=== PATIENT | female | born 1945 | race American Indian/Alaskan Native ===

== ENCOUNTER 2017-11-17 10:43 | Inpatient (IN) | payer MEDICARE ==
[2017-11-17] MEDS ORDERED: CATAPRES PO ONE (11:49)
--- NOTE | 2017-11-17 12:50 | XRay Report ---
LEFT WRIST, 3 views: HISTORY: Pain and swelling at wrist. Mild osteopenia is evident. Mild osteoarthritic changes. No displaced fracture or or malalignment is identified. Chronic calcifications overlying the triangular fibrocartilage complex is noted. There is mild diffuse soft tissue swelling. IMPRESSION: Chronic findings as described.
[2017-11-17 12:59] LABS: Hematocrit 40.3 % (30.3-42.9); Hemoglobin 13.4 gm/dl (10.1-14.3); Mean Corpuscular HGB Conc 33 % (30-34); Mean Corpuscular Hemoglobin 27 pg (28-32); Mean Corpuscular Volume 80 fl (79-97); Platelet Count 209 K/mm3 (140-440); Red Blood Count 5.06 M/mm3 (3.65-5.03); Red Cell Distribution Width 15.3 % (13.2-15.2)
[2017-11-17 13:11] LABS: INR 0.91 (0.87-1.13)
[2017-11-17 13:12] LABS: Partial Thromboplastin Time 26.8 Sec. (24.2-36.6)
[2017-11-17 13:14] LABS: BUN/Creatinine Ratio 21; Blood Urea Nitrogen 15 mg/dL (7-17); Calcium 10.1 mg/dL (8.4-10.2); Hemolysis Index 12
[2017-11-17] MEDS ORDERED: NORCO 5/325 PO ONE (14:48)
--- NOTE | 2017-11-17 14:51 | Emergency Department Report ---
Chief Complaint: Extremity Injury, Upper Stated Complaint: LEFT SHOULDER PAIN - HPI History of Present Illness: 72-year-old female with history of hypertension, lupus, asthma presents to the emergency department with complaint of severe left arm pain from the wrist to the shoulder. She says that she will occasionally have twinges of pain in the chest and some intermittent shortness of breath. No recent travel or sick contacts at home. She has not taken anything for her symptoms prior to presentation. - ROS Review of Systems: Positive for left arm pain and swelling, intermittent chest pains, intermittent shortness of breath Negative for fever, nausea, vomiting or diaphoresis - Exam Vital Signs: Vital Signs 11/17/17 11/17/17 11/17/17 11:33 11:53 13:10 Temperature 99 F Pulse Rate 87 87 71 Respiratory 18 18 Rate Blood Pressure 230/133 230/133 120/70 O2 Sat by Pulse 99 98 Oximetry Physical Exam: Patient appears uncomfortable and is moaning in pain holding her left arm. She is very tender to palpation along the left wrist and the left upper arm. Radial pulse +2 over 4 and Refill less than 2 seconds to the affected left arm. Heart and lungs are normal to auscultation. MSE screening note: Focused history and physical exam performed. Due to findings the following was ordered: So far the patient's labs are unremarkable except for a very elevated d-dimer greater than 1000. Since she has complaints of left arm pain and swelling, she will have a venous Doppler ultrasound done. She has been given something for discomfort. With concern that the left arm pain could be some atypical ACS event, the patient will have an EKG, a 2 view chest x-ray and a troponin has been ordered. It is my recommendation that the patient is seen on the main emergency Department side ED Medical Decision Making - Lab Data Result diagrams: 11/17/17 12:40 11/17/17 12:43 ED Disposition for MSE Condition: Stable Referrals: PRIMARY CARE, [Primary Care Provider] - 3-5 Days
--- NOTE | 2017-11-17 17:02 | Emergency Department Report ---
HPI - General Chief Complaint: Extremity Injury, Upper Time Seen by Provider: 11/17/17 15:00 - HPI HPI: Room 36 The patient is a 72-year-old female presenting with chief complaint of left upper extremity and chest pain. The patient states her left shoulder/left upper extremity and chest wall hurting today upon awakening. The patient states her chest pain is an intermittent shooting pain associated with some shortness of breath and diaphoresis. The patient states she occasionally gets nauseous but has not vomited. Patient complains of significant pain in the left shoulder and remainder of the left upper extremity. Patient denies any history of trauma. The patient gives her pain a score of 10/10. The patient states this happened to her right arm in the past requiring admission to the hospital for 4 months and she states it was attributed to her lupus. 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 - Surgical History Additional Surgical History: hysterectomy - Family History Family history: no significant - Social History Smoking Status: Never Smoker Substance Use Type: None - Medications Home Medications: Home Medications Medication Instructions Recorded Confirmed Last Taken Type Aspirin [Lo-Dose Aspirin EC] 81 mg PO DAILY 11/17/17 11/17/17 Unknown History Valsartan [Diovan] 160 mg PO QDAY 11/17/17 11/17/17 Unknown History amLODIPine [Norvasc] 5 mg PO DAILY 11/17/17 11/17/17 Unknown History ED Review of Systems ROS: Stated complaint: LEFT SHOULDER PAIN Other details as noted in HPI Constitutional: diaphoresis Respiratory: shortness of breath Cardiovascular: chest pain Gastrointestinal: nausea. denies: vomiting Musculoskeletal: arthralgia, myalgia Physical Exam - Physical Exam Vital Signs: Vital Signs 11/17/17 11/17/17 11/17/17 11:33 11:53 13:10 Temperature 99 F Pulse Rate 87 87 71 Respiratory 18 18 Rate Blood Pressure 230/133 230/133 120/70 Blood Pressure [Left] O2 Sat by Pulse 99 98 Oximetry 11/17/17 15:01 Temperature 98.4 F Pulse Rate 18 L Respiratory 18 Rate Blood Pressure Blood Pressure 147/86 [Left] O2 Sat by Pulse 94 Oximetry Physical Exam: GENERAL: The patient is well-developed well-nourished elderly female sitting in wheelchair tearful holding left upper extremity. [] HEENT: Normocephalic. Atraumatic. Extraocular motions are intact. Patient has moist mucous membranes. NECK: Supple. Trachea midline CHEST/LUNGS: Clear to auscultation. There is no respiratory distress noted. 2 + left radial pulse HEART/CARDIOVASCULAR: Regular. There is no tachycardia. There is no gallop rub or murmur. ABDOMEN: Abdomen is soft, nontender. Patient has normal bowel sounds. There is no abdominal distention. SKIN: There is no rash. There is no edema. There is no diaphoresis. NEURO: The patient is awake, alert, and oriented. The patient is cooperative. The patient has normal speech MUSCULOSKELETAL: The left upper extremity is exquisitely tender to touch especially at the wrist. Patient will not perform range of motion secondary to pain. There is no tenderness to palpation of the posterior aspect of the left shoulder ED Course Vital Signs 11/17/17 11/17/17 11/17/17 11:33 11:53 13:10 Temperature 99 F Pulse Rate 87 87 71 Respiratory 18 18 Rate Blood Pressure 230/133 230/133 120/70 Blood Pressure [Left] O2 Sat by Pulse 99 98 Oximetry 11/17/17 15:01 Temperature 98.4 F Pulse Rate 18 L Respiratory 18 Rate Blood Pressure Blood Pressure 147/86 [Left] O2 Sat by Pulse 94 Oximetry ED Medical Decision Making - Lab Data Result diagrams: 11/17/17 12:40 11/17/17 12:43 Laboratory Tests 11/17/17 11/17/17 11/17/17 12:40 12:43 12:43 WBC 7.7 RBC 5.06 H Hgb 13.4 Hct 40.3 MCV 80 MCH 27 L MCHC 33 RDW 15.3 H Plt Count 209 PT 12.7 INR 0.91 APTT 26.8 D-Dimer 1047.28 H Sodium 137 Potassium 4.0 Chloride 98.4 Carbon Dioxide 23 Anion Gap 20 BUN 15 Creatinine 0.7 Estimated GFR > 60 BUN/Creatinine Ratio 21 Glucose 239 H Calcium 10.1 Troponin T 11/17/17 14:57 WBC RBC Hgb Hct MCV MCH MCHC RDW Plt Count PT INR APTT D-Dimer Sodium Potassium Chloride Carbon Dioxide Anion Gap BUN Creatinine Estimated GFR BUN/Creatinine Ratio Glucose Calcium Troponin T < 0.010 - EKG Data -: EKG Interpreted by Me EKG shows normal: sinus rhythm Rate: normal - EKG Data When compared to previous EKG there are: previous EKG unavailable Interpretation: other (left bundle branch block) - Radiology Data Radiology results: report reviewed (chest x-ray, left wrist x-ray, CT chest), image reviewed (chest x-ray, left wrist x-ray, CT chest) interpreted by me: Chest x-ray-no focal infiltrates, no pneumothorax Left wrist x-ray-no acute fracture CT chest (regular radiologist)-no evidence of large vessel or central pulmonary emboli. No acute consolidation - Differential Diagnosis ACS, pericarditis, GERD, rotator cuff injury, bursitis, rheumatoid arthriti Critical care attestation.: If time is entered above; I have spent that time in minutes in the direct care of this critically ill patient, excluding procedure time. ED Disposition Clinical Impression: Chest pain, Polyarthralgia Disposition: OP ADMIT IP TO THIS HOSP Is pt being admited?: Yes Does the pt Need Aspirin: Yes Condition: Fair Instructions: Chest Pain (ED) Referrals: PRIMARY CARE, [Primary Care Provider] - 3-5 Days Time of Disposition: 19:13 (Hospitalist notified (Dr Sears))
--- NOTE | 2017-11-17 17:14 | XRay Report ---
FINAL REPORT EXAM: XR CHEST 1V AP HISTORY: CP TECHNIQUE: Single, portable chest x-ray. PRIORS: None. FINDINGS: Cardiac and mediastinal silhouette within normal limits. Lungs are normally expanded, without significant vascular congestion. No focal consolidation or apparent pneumothorax. Considerable degenerative changes in the bilateral AC joints. Remainder of bony thorax grossly unremarkable. IMPRESSION: 1. No acute findings.
[2017-11-17] MEDS ORDERED: NORCO 5/325 ONE (17:30)
--- NOTE | 2017-11-17 18:15 | Vascular Lab Report ---
LEFT UPPER EXTREMITY VENOUS DUPLEX: REASON FOR EXAM: Pain and swelling of the left upper extremity COMMENTS ON THE LEFT: All arm veins visualized are freely compressible without evidence of internal echogenicity. The subclavian and internal jugular veins are free of thrombus. Flow is spontaneous and phasic throughout. COMMENTS ON THE RIGHT: A limited study of the jugular and subclavian veins shows no evidence of thrombus. IMPRESSION: No evidence of acute or chronic deep venous thrombosis in the left upper extremity.
[2017-11-17] MEDS ORDERED: NORMODYNE IV ONE (19:11)
[2017-11-17] MEDS ORDERED: ASPIRIN PO ONE (19:16)
[2017-11-17] MEDS ORDERED: ZOFRAN ONE (20:51)
[2017-11-17] MEDS ORDERED: MORPHINE ONE (20:51)
[2017-11-17] MEDS ORDERED: ZOFRAN IV ONE (20:52)
[2017-11-17] MEDS ORDERED: MORPHINE IV ONE (20:52)
--- NOTE | 2017-11-17 20:57 | Cat Scan Report ---
FINAL REPORT EXAM: CT ANGIO CHEST HISTORY: chest pain, elevated d-dimer TECHNIQUE: Spiral CTA of the chest after the uneventful administration of IV contrast. Multiplanar reformations. PRIORS: None. FINDINGS: Chest: The main and bilateral proximal pulmonary arteries are normally opacified without endoluminal filling defects. Mild cardiomegaly. No apparent aneurysm, pseudoaneurysm or aortic dissection. No significant lymph node enlargement or axillary adenopathy. Lungs show probable mild bibasilar atelectasis versus scarring. No discrete parenchymal mass, focal consolidation or pleural effusions. No apparent pneumothorax. Visualized upper abdomen grossly unremarkable. Probable right renal cyst measuring approximately 3 cm. Degenerative change in the thoracic spine. IMPRESSION: 1. No evidence of large vessel or central pulmonary emboli. No acute consolidation.
[2017-11-17] MEDS ORDERED: SODIUM CHLORIDE FLUSH SYRINGE 10 ML IV PRN (21:19)
[2017-11-17] MEDS ORDERED: TYLENOL PO PRN (21:19)
[2017-11-17] MEDS ORDERED: ZOFRAN IV PRN (21:19)
[2017-11-17] MEDS ORDERED: MOTRIN PO PRN (21:40)
[2017-11-17] MEDS ORDERED: BABY ASPIRIN ONE (23:50)
[2017-11-17] MEDS ORDERED: PEPCID ONE (23:50)
[2017-11-17] MEDS ORDERED: NORVASC ONE (23:50)
[2017-11-17] MEDS ORDERED: DIOVAN ONE (23:51)
[2017-11-17] MEDS ORDERED: HEPARIN ONE (23:51)
[2017-11-18] MEDS: HALFPRIN EC PO SCH ×2 (00:03→11:41)
[2017-11-18] MEDS: DIOVAN PO SCH ×2 (00:03→11:40)
[2017-11-18] MEDS: HEPARIN SUB-Q SCH ×3 (00:04→21:33)
[2017-11-18] MEDS: SODIUM CHLORIDE FLUSH SYRINGE 10 ML IV SCH ×3 (00:05→21:34)
[2017-11-18] MEDS: PEPCID PO SCH ×3 (00:05→21:33)
--- NOTE | 2017-11-18 02:22 | Event Note ---
Date: 11/17/17 See dictated H/p in reports
--- NOTE | 2017-11-18 03:23 | History and Physical Report ---
CHIEF COMPLAINT: 1. Left-sided chest pain. 2. Bilateral shoulder pain. HISTORY OF PRESENT ILLNESS: A 72-year-old female, poor historian with history of lupus, presents with left-sided chest pain. Retrosternal, not radiating. The patient also has bilateral shoulder pain, which she attributes to her lupus. Has tenderness in both the shoulders and has pain in the shoulders. Chest pain is 5 on a scale of 1-10, intermittent in nature. No exacerbating or relieving factors. No diaphoresis. No shortness of breath, no palpitations. Shoulder pain is about 8 on a scale of 1-10, both the shoulders. PAST MEDICAL HISTORY: Significant for lupus, right eye cataract surgery and decreased hearing, right ear. PAST SURGICAL HISTORY: Hysterectomy. FAMILY HISTORY: No significant family history. SOCIAL HISTORY: Does not smoke. CURRENT MEDICATIONS: Valsartan and amlodipine 5 mg daily, valsartan 160 daily. REVIEW OF SYSTEMS: Significant for bilateral shoulder pain and intermittent chest pain. Otherwise, review of systems negative. PHYSICAL EXAMINATION: VITAL SIGNS: Blood pressure is 230/133 which has come down to 120/70. Temperature is 99, pulse is 87, respiration is 18. HEENT: Unremarkable. Pupils equal and reactive. NECK: Supple, no lymphadenopathy, no thyromegaly. LUNGS: Clear to auscultation and percussion. Good air entry. CHEST: Bilateral shoulder tenderness present. No chest wall tenderness present. CARDIOVASCULAR: S1, S2 heard. No gallop, no murmur, no rub. Apical impulse in left fifth intercostal space and midclavicular line. ABDOMEN: Soft and benign. No hepatosplenomegaly. No guarding, no rigidity. Hernial orifices are normal. EXTREMITIES: Good pedal pulses. No pedal edema. DIAGNOSTIC DATA: EKG shows normal sinus rhythm. Previous EKG not available. Left bundle-branch block present. CT of the chest, no acute embolism, no infiltrates. Left wrist x-ray, no acute fracture. LABORATORY DATA: Significant for ____ glucose of 239. Otherwise, labs are normal. D-dimer is 1047. Hemoglobin A1c is 11.6. ASSESSMENT AND PLAN: 1. Chest pain. Chest pain workup. Lexiscan and troponin ordered. 2. Lupus with bilateral shoulder pain. Lupus workup initiated. ____ sed rate and BISMARK ordered. Also, the patient initiated on ibuprofen and low dose prednisone. 3. New onset diabetes. The patient does not give history of diabetes and the patient is not on any diabetes medications. Her A1c is 11. The patient initiated on metformin for the time being and glimepiride for the time being. Also, Accu-Cheks a.c. and at bedtime. 4. Hypertension. Continue valsartan and amlodipine. 5. Deep venous thrombosis prophylaxis, heparin 5000 q. 12 hours. JOB# [id number] VSM/NTS
[2017-11-18] MEDS ORDERED: MORPHINE ONE ×2 (03:34→10:18)
[2017-11-18] MEDS: MORPHINE IV PRN ×2 (03:39→10:21)
[2017-11-18] MEDS: NORVASC PO SCH ×2 (04:24→11:39)
[2017-11-18] MEDS: PERCOCET 5/325 PO PRN ×3 (04:46→17:38)
[2017-11-18] MEDS ORDERED: APRESOLINE IV ONE (05:51)
[2017-11-18 07:48] LABS: Basophils % (Auto) 0.4 % (0.0-1.8); Eosinophils # (Auto) 0.1 K/mm3 (0.0-0.4); Eosinophils % (Auto) 1.8 % (0.0-4.3); Hematocrit 36.5 % (30.3-42.9); Hemoglobin 12.2 gm/dl (10.1-14.3); Lymphocytes # (Auto) 1.3 K/mm3 (1.2-5.4); Lymphocytes % (Auto) 21.8 % (13.4-35.0); Mean Corpuscular HGB Conc 33 % (30-34); Mean Corpuscular Hemoglobin 27 pg (28-32); Mean Corpuscular Volume 80 fl (79-97); Monocytes # (Auto) 0.6 K/mm3 (0.0-0.8); Monocytes % (Auto) 10.1 % (0.0-7.3); Platelet Count 173 K/mm3 (140-440); Red Blood Count 4.57 M/mm3 (3.65-5.03); Red Cell Distribution Width 15.2 % (13.2-15.2)
[2017-11-18 08:18] LABS: Alanine Aminotransferase 10 units/L (7-56); Albumin 3.2 g/dL (3.9-5); BUN/Creatinine Ratio 19; Blood Urea Nitrogen 13 mg/dL (7-17); Calcium 9.4 mg/dL (8.4-10.2); Hemolysis Index 3
[2017-11-18] MEDS ORDERED: LEXISCAN IV ONE (09:39)
[2017-11-18] MEDS: DELTASONE PO SCH (11:39)
[2017-11-18] MEDS: AMARYL PO SCH (11:39)
[2017-11-18] MEDS: HumaLOG SUB-Q SCH ×4 (11:44→22:47)
[2017-11-18] MEDS: GLUCOPHAGE XR PO SCH (12:43)
--- NOTE | 2017-11-18 13:39 | Treadmill Report ---
NUCLEAR PERFUSION SCAN REFERRING PHYSICIAN: Regina Sears MD PROTOCOL: The patient was brought to the stress lab in a postoperative state, given 10 mCi of technetium 99m at rest. The patient underwent rest imaging. The patient underwent Lexiscan stress test. At peak stress, the patient was given 26 mCi of technetium 99m. Shortly thereafter, the patient underwent stress imaging. This is a technically difficult and limited study. Raw imaging reveals significant breast attenuation. SPECT imaging examined carefully in horizontal long axis, vertical long axis, short axis views. Technically difficult, but grossly no evidence of a large or significant reversible or fixed defect. Gated wall motion reveals normal systolic performance calculated at 50%. No TID. CONCLUSIONS: 1. Technically difficult and limited study due to breast attenuation. Grossly, probably without a significant degree of ischemia or prior infarction. 2. Low normal left ventricular systolic performance calculated at 50%. No evidence of transient ischemic dilatation. Recommend clinical correlation given technically difficult nature of the study. JOB# [id number] JAMES/CALI
--- NOTE | 2017-11-18 17:10 | Progress Note ---
Assessment and Plan Assessment and plan: --Atypical chest pain; probably non-cardiac Stress test negative; continue current cardiac medications --Gastroesophageal reflux disease; probably the cause of chest pain, continue Protonix --History of lupus; bilateral shoulder pain Continue supportive care pain management, low-dose steroids, physical therapy, possible [place]o bandage left wrist if needed --Possible gout flares; low-dose NSAIDs as needed --Hypertension; moderate control, continue current antihypertensives and when necessary medications --Type 2 diabetes mellitus; not on any diabetic medications Hemoglobin A1c 11.6, Accu-Chek sliding scale coverage and ADA diet Insulin as needed --DVT prophylaxis; Lovenox --Mild hyponatremia; replacement therapy closely monitor electrolytes --Full CODE STATUS Disposition; closely monitor the patient, adjust management as needed Patient may need to see a application technician as outpatient upon discharge History Interval history: Patient seen and examined in her room this morning medical records reviewed Patient is complaining of left shoulder and left wrist pain X-ray wrist negative for acute abnormality Left upper extremity venous Doppler negative for DVT CTA chest negative for PE Chest x-ray negative for acute abnormalities Patient alert and awake in mild distress secondary to pain Vital signs reviewed Hospitalist Physical - Constitutional Vitals: Temp Pulse Resp BP Pulse Ox 98.4 F 70 18 173/84 96 11/18/17 08:16 11/18/17 11:40 11/18/17 10:21 11/18/17 11:40 11/18/17 08:16 General appearance: Present: mild distress, well-nourished, obese - EENT Eyes: Present: PERRL, EOM intact - Respiratory Respiratory effort: normal Respiratory: bilateral: diminished, negative: rales, rhonchi, wheezing - Cardiovascular Rhythm: regular Heart Sounds: Present: S1 & S2 - Extremities Extremities: no ischemia, No edema, abnormal (swelling left wrist,tenderness) - Abdominal General gastrointestinal: soft, non-tender - Integumentary Integumentary: Present: clear, warm - Psychiatric Psychiatric: cooperative, other (confused at times) - Neurologic Neurologic: moves all extremities Results - Labs CBC & Chem 7: 11/18/17 06:51 11/18/17 06:51 Labs: Laboratory Last Values WBC 6.0 K/mm3 (4.5-11.0) 11/18/17 06:51 RBC 4.57 M/mm3 (3.65-5.03) 11/18/17 06:51 Hgb 12.2 gm/dl (10.1-14.3) 11/18/17 06:51 Hct 36.5 % (30.3-42.9) 11/18/17 06:51 MCV 80 fl (79-97) 11/18/17 06:51 MCH 27 pg (28-32) L 11/18/17 06:51 MCHC 33 % (30-34) 11/18/17 06:51 RDW 15.2 % (13.2-15.2) 11/18/17 06:51 Plt Count 173 K/mm3 (140-440) 11/18/17 06:51 Lymph % (Auto) 21.8 % (13.4-35.0) 11/18/17 06:51 Heard % (Auto) 10.1 % (0.0-7.3) H 11/18/17 06:51 Eos % (Auto) 1.8 % (0.0-4.3) 11/18/17 06:51 Baso % (Auto) 0.4 % (0.0-1.8) 11/18/17 06:51 Lymph # 1.3 K/mm3 (1.2-5.4) 11/18/17 06:51 Heard # 0.6 K/mm3 (0.0-0.8) 11/18/17 06:51 Eos # 0.1 K/mm3 (0.0-0.4) 11/18/17 06:51 Baso # 0.0 K/mm3 (0.0-0.1) 11/18/17 06:51 Seg Neutrophils % 65.9 % (40.0-70.0) 11/18/17 06:51 Seg Neutrophils # 4.0 K/mm3 (1.8-7.7) 11/18/17 06:51 ESR 10 mm/Hr (0-20) 11/17/17 21:40 PT 12.7 Sec. (12.2-14.9) 11/17/17 12:43 INR 0.91 (0.87-1.13) 11/17/17 12:43 APTT 26.8 Sec. (24.2-36.6) 11/17/17 12:43 D-Dimer 1047.28 ng/mlDDU (0-234) H 11/17/17 12:43 Sodium 136 mmol/L (137-145) L 11/18/17 06:51 Potassium 4.0 mmol/L (3.6-5.0) 11/18/17 06:51 Chloride 97.3 mmol/L (98-107) L 11/18/17 06:51 Carbon Dioxide 24 mmol/L (22-30) 11/18/17 06:51 Anion Gap 19 mmol/L 11/18/17 06:51 BUN 13 mg/dL (7-17) 11/18/17 06:51 Creatinine 0.7 mg/dL (0.7-1.2) 11/18/17 06:51 Estimated GFR > 60 ml/min 11/18/17 06:51 BUN/Creatinine Ratio 19 % 11/18/17 06:51 Glucose 295 mg/dL (65-100) H 11/18/17 06:51 POC Glucose 169 (70-105) H 11/18/17 16:08 Hemoglobin A1c 11.6 % (4-6) H 11/17/17 21:32 Calcium 9.4 mg/dL (8.4-10.2) 11/18/17 06:51 Total Bilirubin 0.60 mg/dL (0.1-1.2) 11/18/17 06:51 AST 13 units/L (5-40) 11/18/17 06:51 ALT 10 units/L (7-56) 11/18/17 06:51 Alkaline Phosphatase 89 units/L (35-129) 11/18/17 06:51 Troponin T < 0.010 ng/mL (0.00-0.029) 11/18/17 11:28 C-Reactive Protein 0.90 mg/dL (0.00-1.30) 11/17/17 21:40 Total Protein 6.8 g/dL (6.3-8.2) 11/18/17 06:51 Albumin 3.2 g/dL (3.9-5) L 11/18/17 06:51 Albumin/Globulin Ratio 0.9 % 11/18/17 06:51
[2017-11-18] MEDS: INDOCIN PO SCH (21:33)
[2017-11-19] MEDS: INDOCIN PO SCH ×3 (06:32→22:13)
[2017-11-19] MEDS: PERCOCET 5/325 PO PRN ×2 (06:38→17:04)
[2017-11-19] MEDS: HALFPRIN EC PO SCH (10:28)
[2017-11-19] MEDS: PEPCID PO SCH ×2 (10:28→22:12)
[2017-11-19] MEDS: NORVASC PO SCH (10:28)
[2017-11-19] MEDS: HEPARIN SUB-Q SCH ×2 (10:29→22:13)
[2017-11-19] MEDS: DIOVAN PO SCH (10:29)
[2017-11-19] MEDS: AMARYL PO SCH (10:31)
[2017-11-19] MEDS: HumaLOG SUB-Q SCH ×4 (10:32→22:00)
[2017-11-19] MEDS: SODIUM CHLORIDE FLUSH SYRINGE 10 ML IV SCH ×2 (10:32→22:13)
[2017-11-19] MEDS: GLUCOPHAGE XR PO SCH (10:32)
[2017-11-19] MEDS: DELTASONE PO SCH (10:33)
--- NOTE | 2017-11-19 11:16 | Progress Note ---
Assessment and Plan Assessment and plan: --Atypical chest pain; probably non-cardiac Stress test negative; continue current cardiac medications --Gastroesophageal reflux disease; probably the cause of chest pain, continue Protonix --History of lupus; bilateral shoulder pain Continue supportive care pain management, low-dose steroids, physical therapy, possible [place] bandage left wrist if needed --Possible gout flares; low-dose NSAIDs as needed --Hypertension; moderate control, continue current antihypertensives and when necessary medications --Type 2 diabetes mellitus; not on any diabetic medications Hemoglobin A1c 11.6, Accu-Chek sliding scale coverage and ADA diet Insulin as needed --DVT prophylaxis; Lovenox --Mild hyponatremia; replacement therapy closely monitor electrolytes --Full CODE STATUS Disposition; closely monitor the patient, adjust management as needed Patient may need to see a scientific programmer as outpatient upon discharge History Interval history: Patient seen and examined medical records reviewed Feels slightly better no new complaints Vital signs stable No new events reported by the nursing Hospitalist Physical - Constitutional Vitals: Temp Pulse Resp BP Pulse Ox 97.8 F 66 20 165/85 95 11/19/17 08:01 11/19/17 08:01 11/19/17 08:01 11/19/17 08:01 11/19/17 08:01 General appearance: Present: mild distress, well-nourished, obese - EENT Eyes: Present: PERRL, EOM intact - Neck Neck: Present: supple, normal ROM - Respiratory Respiratory effort: normal Respiratory: bilateral: diminished, negative: rales, rhonchi, wheezing - Cardiovascular Rhythm: regular Heart Sounds: Present: S1 & S2 - Extremities Extremities: no ischemia, No edema - Abdominal General gastrointestinal: soft, non-tender, non-distended, normal bowel sounds - Integumentary Integumentary: Present: clear, warm - Psychiatric Psychiatric: appropriate mood/affect, cooperative - Neurologic Neurologic: CNII-XII intact, moves all extremities Results - Labs CBC & Chem 7: 11/18/17 06:51 11/18/17 06:51 Labs: Laboratory Last Values WBC 6.0 K/mm3 (4.5-11.0) 11/18/17 06:51 RBC 4.57 M/mm3 (3.65-5.03) 11/18/17 06:51 Hgb 12.2 gm/dl (10.1-14.3) 11/18/17 06:51 Hct 36.5 % (30.3-42.9) 11/18/17 06:51 MCV 80 fl (79-97) 11/18/17 06:51 MCH 27 pg (28-32) L 11/18/17 06:51 MCHC 33 % (30-34) 11/18/17 06:51 RDW 15.2 % (13.2-15.2) 11/18/17 06:51 Plt Count 173 K/mm3 (140-440) 11/18/17 06:51 Lymph % (Auto) 21.8 % (13.4-35.0) 11/18/17 06:51 [place] % (Auto) 10.1 % (0.0-7.3) H 11/18/17 06:51 Eos % (Auto) 1.8 % (0.0-4.3) 11/18/17 06:51 Baso % (Auto) 0.4 % (0.0-1.8) 11/18/17 06:51 Lymph # 1.3 K/mm3 (1.2-5.4) 11/18/17 06:51 [place] # 0.6 K/mm3 (0.0-0.8) 11/18/17 06:51 Eos # 0.1 K/mm3 (0.0-0.4) 11/18/17 06:51 Baso # 0.0 K/mm3 (0.0-0.1) 11/18/17 06:51 Seg Neutrophils % 65.9 % (40.0-70.0) 11/18/17 06:51 Seg Neutrophils # 4.0 K/mm3 (1.8-7.7) 11/18/17 06:51 ESR 10 mm/Hr (0-20) 11/17/17 21:40 PT 12.7 Sec. (12.2-14.9) 11/17/17 12:43 INR 0.91 (0.87-1.13) 11/17/17 12:43 APTT 26.8 Sec. (24.2-36.6) 11/17/17 12:43 D-Dimer 1047.28 ng/mlDDU (0-234) H 11/17/17 12:43 Sodium 136 mmol/L (137-145) L 11/18/17 06:51 Potassium 4.0 mmol/L (3.6-5.0) 11/18/17 06:51 Chloride 97.3 mmol/L (98-107) L 11/18/17 06:51 Carbon Dioxide 24 mmol/L (22-30) 11/18/17 06:51 Anion Gap 19 mmol/L 11/18/17 06:51 BUN 13 mg/dL (7-17) 11/18/17 06:51 Creatinine 0.7 mg/dL (0.7-1.2) 11/18/17 06:51 Estimated GFR > 60 ml/min 11/18/17 06:51 BUN/Creatinine Ratio 19 % 11/18/17 06:51 Glucose 295 mg/dL (65-100) H 11/18/17 06:51 POC Glucose 233 (70-105) H 11/19/17 06:35 Hemoglobin A1c 11.6 % (4-6) H 11/17/17 21:32 Calcium 9.4 mg/dL (8.4-10.2) 11/18/17 06:51 Total Bilirubin 0.60 mg/dL (0.1-1.2) 11/18/17 06:51 AST 13 units/L (5-40) 11/18/17 06:51 ALT 10 units/L (7-56) 11/18/17 06:51 Alkaline Phosphatase 89 units/L (35-129) 11/18/17 06:51 Troponin T < 0.010 ng/mL (0.00-0.029) 11/18/17 11:28 C-Reactive Protein 0.90 mg/dL (0.00-1.30) 11/17/17 21:40 Total Protein 6.8 g/dL (6.3-8.2) 11/18/17 06:51 Albumin 3.2 g/dL (3.9-5) L 11/18/17 06:51 Albumin/Globulin Ratio 0.9 % 11/18/17 06:51
[2017-11-20] MEDS: INDOCIN PO SCH (06:00)
[2017-11-20 07:56] LABS: Basophils % (Auto) 0.5 % (0.0-1.8); Eosinophils # (Auto) 0.1 K/mm3 (0.0-0.4); Eosinophils % (Auto) 1.9 % (0.0-4.3); Hematocrit 37.7 % (30.3-42.9); Hemoglobin 12.2 gm/dl (10.1-14.3); Lymphocytes # (Auto) 2.3 K/mm3 (1.2-5.4); Mean Corpuscular HGB Conc 33 % (30-34); Mean Corpuscular Volume 80 fl (79-97); Monocytes # (Auto) 0.5 K/mm3 (0.0-0.8); Monocytes % (Auto) 7.7 % (0.0-7.3); Platelet Count 213 K/mm3 (140-440); Red Blood Count 4.72 M/mm3 (3.65-5.03); Red Cell Distribution Width 15.1 % (13.2-15.2)
[2017-11-20 08:06] LABS: Mean Corpuscular Hemoglobin 26 pg (28-32)
[2017-11-20 08:40] VITALS: BP 161/103
[2017-11-20 08:54] LABS: BUN/Creatinine Ratio 24; Blood Urea Nitrogen 19 mg/dL (7-17); Calcium 10.1 mg/dL (8.4-10.2); Hemolysis Index 5
[2017-11-20] MEDS: AMARYL PO SCH (12:23)
[2017-11-20] MEDS: DELTASONE PO SCH (12:23)
[2017-11-20] MEDS: NORVASC PO SCH (12:24)
[2017-11-20] MEDS: GLUCOPHAGE XR PO SCH (12:24)
[2017-11-20] MEDS: PEPCID PO SCH (12:24)
[2017-11-20] MEDS: HALFPRIN EC PO SCH (12:24)
[2017-11-20] MEDS: DIOVAN PO SCH (12:24)
[2017-11-20] MEDS: SODIUM CHLORIDE FLUSH SYRINGE 10 ML IV SCH (12:28)
[2017-11-20] MEDS: HumaLOG SUB-Q SCH (12:29)
--- NOTE | 2017-11-20 13:03 | Discharge Summary ---
Providers - Providers Date of Admission: 11/17/17 21:19 Date of discharge: 11/20/17 Attending physician: BERNABE PLATT 11/20/17 10:25 Physical Therapy Evaluation and Treat [CONS] Routine Comment: Reason For Exam: d/c needs for PT Primary care physician: MARRIAGE PERFORMER Hospitalization Condition: Fair Hospital course: --Atypical chest pain; probably non-cardiac Stress test negative; continue current cardiac medications --Gastroesophageal reflux disease; probably the cause of chest pain, continue Protonix --History of lupus; bilateral shoulder pain Continue supportive care pain management, low-dose steroids, physical therapy, possible [place]ucho bandage left wrist if needed --Possible gout flares; low-dose NSAIDs as needed --Hypertension; moderate control, continue current antihypertensives and when necessary medications --Type 2 diabetes mellitus; not on any diabetic medications Hemoglobin A1c 11.6, Accu-Chek sliding scale coverage and ADA diet Insulin as needed Disposition: [id number] HOME UNDER [facility] Time spent for discharge: 32 min Core Measure Documentation - Palliative Care Palliative Care/ Comfort Measures: Not Applicable - Core Measures Any of the following diagnoses?: none Exam - Constitutional Vitals: Temp Pulse Resp BP Pulse Ox 98.1 F 63 18 161/103 98 11/20/17 08:05 11/20/17 08:05 11/20/17 08:05 11/20/17 08:05 11/20/17 08:05 General appearance: Present: no acute distress, well-nourished - EENT Eyes: Present: PERRL, EOM intact - Neck Neck: Present: supple, normal ROM - Respiratory Respiratory effort: normal Respiratory: bilateral: diminished, negative: rales, rhonchi, wheezing - Cardiovascular Rhythm: regular Heart Sounds: Present: S1 & S2 - Extremities Extremities: no ischemia, No edema - Abdominal General gastrointestinal: Present: soft, non-tender, non-distended, normal bowel sounds - Integumentary Integumentary: Present: clear, warm - Musculoskeletal Musculoskeletal: strength equal bilaterally, generalized weakness - Psychiatric Psychiatric: appropriate mood/affect, cooperative - Neurologic Neurologic: CNII-XII intact, moves all extremities Plan Activity: advance as tolerated, fall precautions Diet: diabetic Special Instructions: physical therapy Additional Instructions: Continue insulin as before, checked with primary care physician in 3-4 days Follow up with: PRIMARY CARE, [Primary Care Provider] - 3-5 Days Prescriptions: Ibuprofen [Motrin 600 MG tab] 600 mg PO Q8H PRN #15 tablet PRN Reason: Pain, Mild (1-3) oxyCODONE /ACETAMINOPHEN [Percocet 5/325 mg] 1 tab PO QHS PRN #5 tablet PRN Reason: Pain, Moderate (4-6) Pantoprazole [Protonix] 40 mg PO QDAY #14 tablet predniSONE [Deltasone] 20 mg PO QDAY #5 tablet
[2017-11-20 22:38] LABS: ANA Screen, IFA Positive (Negative)
== END 2017-11-20 16:56 | disposition home health service (06) | DRG 392 ==
LOC: ED 10:43 → 4A 21:19
PROVIDERS: ADMIT Internal Medicine; ATTEND Internal Medicine
DX: K21.9 Gastro-esophageal reflux disease without esophagitis (principal); E87.1 Hypo-osmolality and hyponatremia; E11.8 Type 2 diabetes mellitus with unspecified complications; M10.9 Gout, unspecified; M25.512 Pain in left shoulder; M32.9 Systemic lupus erythematosus, unspecified; M25.511 Pain in right shoulder; I10 Essential (primary) hypertension; G43.909 Migraine, unspecified, not intractable, without status migrainosus; Z90.710 Acquired absence of both cervix and uterus; Z79.82 Long term (current) use of aspirin; Z79.899 Other long term (current) drug therapy
CPT/HCPCS: 36415; 71045; 71275; 78452; 80048; 80053; 82962; 83036; 84484; 85025; 85027; 85379; 85610; 85652; 85730; 86038; 86140; 86225; 93005; 93010; 93017; 96374; 96375; A9502; J0360; J1644; J1815; J2270; J2405; J2785; J7512; Q9967